=== PATIENT | female | born 1980 | race Caucasian/White ===

== ENCOUNTER 2019-03-08 05:46 | Inpatient (IN) | payer OTHER ==
[2019-03-08] MEDS: CEFAZOLIN 2 GM/50 ML (PMX) 50 ML IVPB (06:45)
[2019-03-08] MEDS: LACTATED RINGER'S 1,000 ML IV ×2 (06:46→06:47)
[2019-03-08] MEDS ORDERED: GELATIN SIZE 100 SPONGE (06:50)
[2019-03-08] MEDS ORDERED: THROMBIN (BOVINE) 5,000 UNIT VIAL TP (06:51)
[2019-03-08] MEDS ORDERED: ROCURONIUM 50 MG INJ ×2 (07:00→07:17)
[2019-03-08] MEDS ORDERED: MIDAZOLAM 1 MG/ML 2 ML INJ (07:06)
[2019-03-08] MEDS ORDERED: PROPOFOL 20 ML (07:06)
[2019-03-08] MEDS ORDERED: SUCCINYLCHOLINE CHLORIDE 100 MG/5 ML SYG IV (07:06)
[2019-03-08] MEDS ORDERED: LIDOCAINE 1% (MDV) 20 ML INJ (07:09)
[2019-03-08] MEDS ORDERED: ONDANSETRON 4 MG INJ (07:18)
[2019-03-08] MEDS ORDERED: DEXAMETHASONE 4 MG/ML 5 ML INJ (07:18)
[2019-03-08] MEDS: POLYMYXIN/BACITRACIN 1L IRRIG (07:40)
[2019-03-08] MEDS: BUPIVACAINE 0.25% (MPF) 30 ML INJ (07:40)
[2019-03-08] MEDS ORDERED: FENTAnyl 50 MCG/ML VIAL (08:54)
[2019-03-08] MEDS ORDERED: SUGAMMADEX SODIUM 200 MG/2 ML VIAL IV (09:05)
[2019-03-08] MEDS ORDERED: hydrALAzine 20 MG INJ IV (10:30)
[2019-03-08] MEDS ORDERED: HYDROmorphONE 1 MG/5 ML IV SYRINGE IV ×2 (10:30)
[2019-03-08] MEDS ORDERED: HALOPERIDOL 5 MG INJ IV (10:30)
[2019-03-08] MEDS ORDERED: PROCHLORPERAZINE 10 MG TAB PO (10:30)
[2019-03-08] MEDS ORDERED: EPHEDrine 25 MG/5 ML SYG IV (10:30)
[2019-03-08] MEDS ORDERED: FENTAnyl 50 MCG/ML VIAL IV ×2 (10:30)
[2019-03-08] MEDS ORDERED: ACETAMINOPHEN 325 MG TAB PO (10:30)
[2019-03-08] MEDS ORDERED: MIDAZOLAM 1 MG/ML 2 ML INJ IV (10:30)
[2019-03-08] MEDS ORDERED: LEVALBUTEROL (NEB) 1.25 MG/0.5 ML AMP HHN (10:30)
[2019-03-08] MEDS ORDERED: TRIMETHOBENZAMIDE 100 MG/ML VIAL IM ×2 (10:30)
[2019-03-08] MEDS ORDERED: DIAZEPAM 5 MG/ML SYG IM (10:30)
[2019-03-08] MEDS ORDERED: NALOXONE (0.4 MG/ML) INJ IV ×2 (10:30)
[2019-03-08] MEDS ORDERED: LEVALBUTEROL (NEB) 0.63 MG/3 ML AMP HHN (10:30)
[2019-03-08] MEDS ORDERED: MEPERIDINE 25 MG INJ IV (10:30)
[2019-03-08] MEDS ORDERED: ONDANSETRON 4 MG INJ IV ×2 (10:30)
[2019-03-08] MEDS ORDERED: ZOLPIDEM 5 MG TAB PO (10:30)
[2019-03-08] MEDS ORDERED: NACL 0.9% 3 ML SYG IV (10:30)
[2019-03-08] MEDS ORDERED: CEPASTAT LOZENGE MT (10:30)
[2019-03-08] MEDS ORDERED: LABETALOL HCL 20MG INJ IV (10:30)
[2019-03-08] MEDS ORDERED: ALBUMIN HUMAN 5% 250 ML IV (10:30)
[2019-03-08] MEDS ORDERED: AL HYDROX/MG HYDROX/SIMETH 30 ML CUP PO (10:30)
[2019-03-08] MEDS: ALBUTEROL 0.083% (NEB) 2.5 MG/3 ML AMP HHN (10:35)
[2019-03-08] MEDS: HYDROmorphONE 0.2 MG/ML PCA IV (10:38)
[2019-03-08] MEDS: DIPHENHYDRAMINE 50 MG INJ IV ×2 (10:39→12:10)
[2019-03-08] MEDS: HYDROmorphONE 1 MG/5 ML IV SYRINGE IV (10:39)
[2019-03-08] MEDS: METOCLOPRAMIDE 10 MG INJ IV (10:39)
[2019-03-08] MEDS: CEFAZOLIN 1 GM/50 ML (PMX) 50 ML IVPB ×2 (11:17→17:57)
[2019-03-08] MEDS: FENTAnyl 50 MCG/ML VIAL IV ×2 (12:53→13:00)
[2019-03-08] MEDS: DEXTROSE 5%-0.45% NACL 1,000 ML IV ×2 (13:23→20:04)
[2019-03-08] MEDS ORDERED: ALBUTEROL 18 GM INHALER INH (14:00)
[2019-03-08] MEDS: RACEPINEPHRINE 2.25%(NEB) 0.5 ML AMP HHN (17:27)
[2019-03-08] MEDS: ALBUTEROL HFA 8 GM INHALER INH ×2 (18:04→20:51)
[2019-03-08] MEDS: RANITIDINE 150 MG TAB PO (20:18)
[2019-03-08] MEDS: PREGABALIN 75 MG CAP PO (20:18)
[2019-03-08] MEDS: traZODone 50 MG TAB PO ×2 (20:46→22:08)
[2019-03-09] MEDS: CEFAZOLIN 1 GM/50 ML (PMX) 50 ML IVPB ×2 (00:17→05:36)
[2019-03-09] MEDS: DIPHENHYDRAMINE 50 MG CAP PO (00:20)
[2019-03-09] MEDS: HYDROmorphONE 0.2 MG/ML PCA IV (00:35)
[2019-03-09] MEDS: ALBUTEROL HFA 8 GM INHALER INH ×3 (00:47→08:56)
[2019-03-09] MEDS: DEXTROSE 5%-0.45% NACL 1,000 ML IV ×2 (04:06→16:04)
[2019-03-09 06:06] LABS: HEMATOCRIT 37.5 % (37.0-47.0); HEMOGLOBIN 12.4 g/dl (12.0-16.0)
[2019-03-09 06:43] LABS: ANION GAP 9 (5-13); BLOOD UREA NITROGEN 9 mg/dl (7-20); CALCIUM 8.8 mg/dl (8.4-10.2); CARBON DIOXIDE 25 mmol/L (21-31); CHLORIDE 105 mmol/L (97-110); CREATININE 0.53 mg/dl (0.44-1.00); Estimated GFR > 60 mL/min (>60); GLUCOSE 123 mg/dl (70-220); POTASSIUM 3.8 mmol/L (3.5-5.1); SODIUM 139 mmol/L (135-144)
[2019-03-09] MEDS ORDERED: BETHANECHOL 25 MG TAB PO (08:00)
[2019-03-09] MEDS: FERROUS SULFATE (EC) 325 MG TAB PO ×2 (08:56→14:23)
[2019-03-09] MEDS: DOCUSATE SODIUM 100 MG CAP PO (08:57)
[2019-03-09] MEDS: PREGABALIN 75 MG CAP PO (08:57)
[2019-03-09] MEDS: ASCORBIC ACID 500 MG TAB PO (08:57)
[2019-03-09] MEDS: RANITIDINE 150 MG TAB PO (08:57)
[2019-03-09] MEDS: BETHANECHOL 25 MG TAB PO (08:58)
[2019-03-09] MEDS: traMADol 50 MG TAB PO ×2 (08:58→17:31)
[2019-03-09 09:38] LABS: ADD UMIC NO; UR ASCORBIC ACID NEGATIVE (NEGATIVE); UR BILIRUBIN (Dip) NEGATIVE (NEGATIVE); UR BLOOD (Dip) NEGATIVE (NEGATIVE); UR CLARITY CLEAR (CLEAR); UR COLOR COLORLESS (YELLOW); UR GLUCOSE (Dip) NEGATIVE (NEGATIVE); UR KETONES (Dip) NEGATIVE (NEGATIVE); UR LEUKOCYTE ESTERASE (Dip) NEGATIVE Leu/ul (NEGATIVE); UR NITRITE (Dip) NEGATIVE (NEGATIVE); UR SPECIFIC GRAVITY (Dip) 1.005 (1.003-1.030); UR TOTAL PROTEIN (Dip) NEGATIVE (NEGATIVE); UR UROBILINOGEN (Dip) NEGATIVE (NEGATIVE)
[2019-03-09] MEDS: DIAZEPAM 5 MG TAB PO (14:23)
== END 2019-03-09 18:35 | disposition home or self-care (01) | DRG 520 ==
LOC: REC 05:46 → MS1 15:50
PROC: 01NB0ZZ Release Lumbar Nerve, Open Approach (ICD-10-PCS; principal; 2019-03-08 07:00)
PROC: 0SB20ZZ Excision of Lumbar Vertebral Disc, Open Approach (ICD-10-PCS; 2019-03-08 07:00)
DX: M51.26 Other intervertebral disc displacement, lumbar region (principal); J45.909 Unspecified asthma, uncomplicated; G47.00 Insomnia, unspecified
CPT/HCPCS: 72020; 80048; 81003; 85014; 85018; 86850; 86900; 86901; 86920; 87086; 88304; 94664; 97110; 97116; 97161; 97530